=== PATIENT | female | born 1950 | race Caucasian/White ===

== ENCOUNTER 2017-04-08 17:24 | Emergency (ER) | payer OTHER ==
[2017-04-08 17:48] VITALS: TEMP 97.5
[2017-04-08] MEDS ORDERED: NS 1,000 ML IV ONE ×3 (17:49→17:50)
--- NOTE | 2017-04-08 17:49 | EDPHY ---
H & P Stated Complaint: SYNCOPE X 2 AFTER HIKING, VALIUM AND THC Time Seen by Provider: 04/08/17 17:49 HPI/ROS: CHIEF COMPLAINT: Syncope HISTORY OF PRESENT ILLNESS: The patient presents to the ED after an episode of syncope. This apparently occurred while she was sitting and went to get up from a table and reportedly fell backwards. The patient is uncertain whether she sustained any significant trauma. Her reports that she did not. In the ED she denies any significant chest pain, difficulty breathing, neck pain or significant headache. The patient states that she has no significant medical problems she has had no recent illness or history of melena. The patient reportedly did go on a 4 mile hike today. The patient did use some Valium and recreational THC which is not on for her. Currently in the department, she denies any chest pain, difficulty breathing, symptoms of numbness/weakness or other acute complaints. REVIEW OF SYSTEMS: A comprehensive 10 point review of systems is otherwise negative aside from elements mentioned in the history of present illness. Source: Patient Exam Limitations: No limitations - Personal History Current Tetanus/Diphtheria Vaccine: Yes Current Tetanus Diphtheria and Acellular Pertussis (TDAP): Yes - Medical/Surgical History Hx Asthma: No Hx Chronic Respiratory Disease: No Hx Diabetes: No Hx Cardiac Disease: No Hx Renal Disease: No Hx Cirrhosis: No Hx Alcoholism: No Hx HIV/AIDS: No Hx Splenectomy or Spleen Trauma: No Other PMH: DEPRESSION - Physical Exam Exam: General Appearance: Alert, no distress Head: Normocephalic, atraumatic Neck: No midline tenderness to palpation Eyes: Pupils equal and round no pallor or injection ENT, Mouth: Mucous membranes moist Respiratory: There are no retractions, lungs are clear to auscultation Cardiovascular: Regular rate and rhythm Gastrointestinal: Abdomen is soft and nontender, no masses, bowel sounds normal Neurological: A&O, normal motor function, normal sensory exam, normal cranial nerves Skin: Warm and dry, no rashes Musculoskeletal: Neck is supple nontender Extremities: symmetrical, full range of motion Constitutional: Initial Vital Signs Temperature (C) 36.4 C 04/08/17 17:46 Heart Rate 68 04/08/17 17:46 Respiratory Rate 16 04/08/17 17:46 Blood Pressure 148/78 H 04/08/17 17:46 O2 Sat (%) 97 04/08/17 17:46 O2 Delivery Mode Room Air Allergies/Adverse Reactions: No Known Allergies Allergy (Unverified 04/08/17 17:45) Home Medications: Medication Instructions Recorded Effexor 04/08/17 Medical Decision Making ED Course/Re-evaluation: The patient presents to the ED after a witnessed syncopal episode. The patient reportedly had no seizure activity on scene. The patient is noted to be neurologically intact. She has no evidence of head trauma or complaints of significant headache. The patient's EKG is a normal limits. The patient was placed on a emergency response officer in the emergency department. She was noted to be orthostatic upon arrival. She received 2 L normal saline with marked improvement of her symptoms. The patient was noted to have a creatinine of 1.7. There is no baseline blood test to compare to. I have for the patient to the on-call primary care provider for a recheck in the next week. I re-evaluated the patient at 7:30 p.m.. She is now ambulatory without acute complaints. Discussion: The patient presents to the ED after a vasovagal episode of syncope. At this point time I do feel she can safely be discharged home. There is nothing to suggest stroke or acute coronary syndrome as an etiology of her symptoms. The patient will be provided customary aftercare instructions and return precautions. Differential Diagnosis: Differential diagnosis considered includes stroke, TIA, metabolic abnormality, vasovagal episode - Data Points Laboratory Results: Laboratory Results 04/08/17 Unknown 04/08/17 Unknown 04/08/17 04/08/17 Unknown Unknown WBC 10.25 10^3/uL H 10^3/uL (3.80-9.50) RBC 4.06 10^6/uL L 10^6/uL (4.18-5.33) Hgb 12.7 g/dL g/dL (12.6-16.3) Hct 37.6 % L % (38.0-47.0) MCV 92.6 fL fL (81.5-99.8) MCH 31.3 pg pg (27.9-34.1) MCHC 33.8 g/dL g/dL (32.4-36.7) RDW 13.5 % % (11.5-15.2) Plt Count 338 10^3/uL 10^3/uL (150-400) MPV 9.6 fL fL (8.7-11.7) Neut % (Auto) 76.6 % H % (39.3-74.2) Lymph % (Auto) 16.7 % % (15.0-45.0) [place] % (Auto) 5.4 % % (4.5-13.0) Eos % (Auto) 0.4 % L % (0.6-7.6) Baso % (Auto) 0.5 % % (0.3-1.7) Nucleat RBC Rel Count 0.0 % % (0.0-0.2) Absolute Neuts (auto) 7.86 10^3/uL H 10^3/uL (1.70-6.50) Absolute Lymphs (auto) 1.71 10^3/uL 10^3/uL (1.00-3.00) Absolute Monos (auto) 0.55 10^3/uL 10^3/uL (0.30-0.80) Absolute Eos (auto) 0.04 10^3/uL 10^3/uL (0.03-0.40) Absolute Basos (auto) 0.05 10^3/uL 10^3/uL (0.02-0.10) Absolute Nucleated RBC 0.00 10^3/uL 10^3/uL (0-0.01) Immature Gran % 0.4 % % (0.0-1.1) Immature Gran # 0.04 10^3/uL 10^3/uL (0.00-0.10) Sodium 132 mEq/L L mEq/L (134-144) Potassium 3.6 mEq/L mEq/L (3.5-5.2) Chloride 92 mEq/L L mEq/L (97-110) Carbon Dioxide 26 mEq/l mEq/l (22-31) Anion Gap 14 mEq/L mEq/L (8-16) BUN 18 mg/dL mg/dL (7-23) Creatinine 1.7 mg/dL H mg/dL (0.6-1.0) Estimated GFR 30 Glucose 144 mg/dL H mg/dL (70-100) Calcium 10.1 mg/dL mg/dL (8.5-10.4) Medications Given: Discontinued Medications Sodium Chloride (Ns) 1,000 mls @ 0 mls/hr IV EDNOW ONE; Wide Open PRN Reason: Protocol Stop: 04/08/17 17:50 Last Admin: 04/08/17 18:01 Dose: 1,000 mls Sodium Chloride (Ns) 1,000 mls @ 0 mls/hr IV EDNOW ONE; Wide Open PRN Reason: Protocol Stop: 04/08/17 17:50 Last Admin: 04/08/17 18:00 Dose: 1,000 mls Sodium Chloride (Ns) 1,000 mls @ 0 mls/hr IV ONCE ONE PRN Reason: Wide Open Stop: 04/08/17 17:51 Last Admin: 04/08/17 18:26 Dose: 1,000 mls Ibuprofen (Motrin) 600 mg PO EDNOW ONE Stop: 04/08/17 18:10 Last Admin: 04/08/17 18:24 Dose: 600 mg Departure - Departure Disposition: Home, Routine, Self-Care Clinical Impression: Syncope, Vasovagal episode, Elevated serum creatinine Condition: Good Instructions: Syncope (ED) Additional Instructions: 1. The testing done in the emergency department today demonstrates only a slightly elevated kidney function with a creatinine level of 1.7. Please have this rechecked in the next week by your primary care provider. I recommend not taking medications such as ibuprofen or Aleve as this can effect kidney function. 2. Please return to the emergency department for any recurrent symptoms of passing out, severe headache, numbness, weakness or other concerns. 3. Please try and increase your fluid intake as mild dehydration may have contributed to your symptoms today. Referrals: SIMA ELIZABETH [Other] - As per Instructions
--- NOTE | 2017-04-08 17:49 | CPEKG ---
Heart Rate: 65 RR Interval: 923 P-R Interval: 184 QRSD Interval: 108 QT Interval: 424 QTC Interval: 441 P Webster: 62 QRS Webster: 19 T Wave Webster: 72 EKG Severity - NORMAL ECG - EKG Impression: SINUS RHYTHM Electronically Signed By: Jone Medrano 08-Apr-2017 20:28:06
[2017-04-08] MEDS ORDERED: IBUPROFEN 600 MG TAB PO ONE (18:09)
[2017-04-08 18:11] LABS: % IMMATURE GRANULYOCYTES 0.4 % (0.0-1.1); ABSOLUTE IMMATURE GRANULOCYTES 0.04 10^3/uL (0.00-0.10); ADD DIFF? NO; ADD MORPH? NO; ADD SCAN? NO; ATYPICAL LYMPHOCYTE FLAG 10 (0-99); FRAGMENT RBC FLAG 0 (0-99); HEMATOCRIT 37.6 % (38.0-47.0); HEMOGLOBIN 12.7 g/dL (12.6-16.3); LEFT SHIFT FLG 0 (0-99); LIPEMIA HEMOLYSIS FLAG 90 (0-99); MEAN CELL HEMOGLOBIN 31.3 pg (27.9-34.1); MEAN CELL HEMOGLOBIN CONCENTR. 33.8 g/dL (32.4-36.7); MEAN CELL VOLUME 92.6 fL (81.5-99.8); MEAN PLATELET VOLUME 9.6 fL (8.7-11.7); PLATELET CLUMPS FLAG 0 (0-99); PLATELET COUNT 338 10^3/uL (150-400); RED BLOOD CELL COUNT 4.06 10^6/uL (4.18-5.33); RED CELL DISTRIBUTION WIDTH 13.5 % (11.5-15.2)
[2017-04-08 18:31] LABS: ANION GAP 14 mEq/L (8-16); CALCIUM 10.1 mg/dL (8.5-10.4); CARBON DIOXIDE 26 mEq/l (22-31); CHLORIDE 92 mEq/L (97-110); CREATININE 1.7 mg/dL (0.6-1.0); GLOMERULAR FILTRATION RATE 30; GLUCOSE 144 mg/dL (70-100); POTASSIUM 3.6 mEq/L (3.5-5.2); SODIUM 132 mEq/L (134-144)
[2017-04-08 19:45] VITALS: BP 161/62; RESP 16; O2SAT 97
[2017-04-08 19:58] VITALS: PULSE 65
== END 2017-04-08 19:57 | disposition home or self-care (01) ==
LOC: EDUNIT#
DX: R55 Syncope and collapse (principal); R94.4 Abnormal results of kidney function studies; E86.9 Volume depletion, unspecified